=== PATIENT | female | born 2005 | race African-American/Black ===

== ENCOUNTER 2025-02-25 08:45 | Emergency (ER) | payer BC ==
[2025-02-25] MEDS ORDERED: Acetaminophen 500 MG TAB ONE (09:52)
== END 2025-02-25 11:21 | disposition home or self-care (01) ==
LOC: CSHERS 08:45
DX: M79.672 Pain in left foot (principal); X50.1XXA Overexertion from prolonged static or awkward postures, initial encounter; Y93.41 Activity, dancing
CPT/HCPCS: 99283